=== PATIENT | female | born 1945 | race Caucasian/White ===

== ENCOUNTER → 2017-01-18 | Outpatient (CLI) | payer MEDICARE ==
[~2017-01-18] MED LIST: ACIT25CA2 PO; ASPI-558 PO; LOVA20TA71 PO; MINO100C2 PO; OMEP-122 PO; TAZA30CR TOP; [UNRECOGNIZED DRUG - CODE] PO
== END ==
LOC: WC.BC 10:42
DX: Z12.31 Encounter for screening mammogram for malignant neoplasm of breast (principal)
CPT/HCPCS: 77063; G0202